=== PATIENT | male | born 1945 | race Caucasian/White ===

== ENCOUNTER 2020-04-30 16:16 | Inpatient (IN) | payer MEDICARE, BC ==
[~2020-04-30] VITALS: Ht 170.2 cm; Wt 61.2 kg
[2020-04-30] MEDS ORDERED: QUET300T2 PO (16:36)
[2020-04-30] MEDS ORDERED: ASPI81TA31 PO (16:36)
[2020-04-30] MEDS ORDERED: CALCIUM (16:36)
[2020-04-30] MEDS ORDERED: PROTONIX (16:36)
[2020-04-30] MEDS ORDERED: ACET-2154 PO (16:36)
[2020-04-30] MEDS ORDERED: MULT-594 PO (16:36)
[2020-04-30] MEDS ORDERED: FOLIC ACID (16:36)
[2020-04-30] MEDS ORDERED: FISH OIL (16:36)
[2020-04-30] MEDS ORDERED: VITAMIN D3 (16:36)
[2020-04-30] MEDS ORDERED: DETROL LA (16:36)
[2020-04-30] MEDS ORDERED: IRON (16:36)
[2020-04-30] MEDS ORDERED: LIPITOR (16:36)
--- NOTE | 2020-04-30 17:06 | NUR ---
PT IS IN ROOM #1B. DR JOHNSON EVALUATED THE PT.
[2020-04-30] MEDS ORDERED: MORPHINE SULFATE 2 MG/1 ML DISP.SYRIN IV ONE (17:15)
[2020-04-30] MEDS ORDERED: ONDANSETRON 4 MG/2 ML VIAL IV ONE (17:15)
[2020-04-30] MEDS ORDERED: IV NORMAL SALINE 1000 ML BAG IV ONE ×3 (17:15→18:00)
--- NOTE | 2020-04-30 17:20 | NUR ---
Pt unable recall doses/freq for home medications at this time.
[2020-04-30] MEDS ORDERED: ONDANSETRON 4 MG/2 ML VIAL ONE (17:27)
[2020-04-30] MEDS ORDERED: MORPHINE SULFATE 4 MG/1 ML DISP.SYRIN ONE (17:27)
[2020-04-30] MEDS ORDERED: LOSARTAN (17:28)
[2020-04-30] MEDS ORDERED: TAMSULOSIN (17:28)
[2020-04-30] MEDS ORDERED: SIMVASTATIN (17:28)
[2020-04-30] MEDS ORDERED: SERTRALINE (17:28)
[2020-04-30] MEDS ORDERED: FINASTERIDE (17:28)
[2020-04-30 17:32] LABS: BASOPHILS % (AUTO) 0.2 % (0.0-2.0); HEMATOCRIT 39.3 % (36.7-47.1); HEMOGLOBIN 12.9 g/dL (12.5-16.3); LYMPHOCYTES # (AUTO) 0.4 K/uL (20.0-40.0); LYMPHOCYTES % (AUTO) 4.5 % (20.5-51.5); MEAN CORPUSCULAR HEMOGLOBIN 28.6 uug (23.8-33.4); MEAN CORPUSCULAR HGB CONC 33 g/dL (32.5-36.3); MEAN CORPUSCULAR VOLUME 87.2 fL (73.0-96.2); MONOCYTES # (AUTO) 0.2 K/uL (2.0-10.0); MONOCYTES % (AUTO) 2.1 % (0.0-11.0); NEUTROPHILS # (AUTO) 8.4 K/uL (1.8-8.9); NEUTROPHILS % (AUTO) 93.2 % (38.5-71.5); PLATELET COUNT (AUTO) 361 K/uL (152-348); RED BLOOD CELL COUNT(AUTO) 4.51 MIL/uL (4.06-5.63)
[2020-04-30 17:45] LABS: BILIRUBIN,DIRECT 0.2 mg/dL (0.0-0.2); BILIRUBIN,TOTAL 0.3 mg/dL (0.2-1.0); CREATININE 1.1 mg/dL (0.6-1.3); POTASSIUM 4.2 mmol/L (3.5-5.1); TOTAL PROTEIN, SERUM 5.7 g/dL (6.4-8.2)
[2020-04-30] MEDS ORDERED: CEFTRIAXONE 1 G in IV DEXTROSE 5% 50 ML IV ONE (18:00)
[2020-04-30] MEDS ORDERED: CEFTRIAXONE /D5W 50ML IVPB **ER PYXIS IV ONE (18:03)
[2020-04-30] MEDS ORDERED: PIPERACILLIN SODIUM/TAZOBACTAM 3.375 G in IV DEXTROSE 5% 50 ML IV ONE (18:45)
[2020-04-30] MEDS ORDERED: PIPERACILLIN/TAZOBACTAM/D5W 50 ML IV ONE (18:50)
--- NOTE | 2020-04-30 18:56 | NUR ---
DR JOHNSON TALKED TO ADMITTING DR HERNANDEZ AND SURGION , DR GOODSON. PT IS GOING TO GO FOR SURGERY ACCORDING TO DR GOODSON AT 1930 - 1999 [facility]. REPORT GIVEN TO REPAIRER [employer] RN DEJA. PT IS RESTING IN BED. NO S/S OF ACUTE DISTRESS AT THIS TIME.
--- NOTE | 2020-04-30 19:17 | NUR ---
Surgeon ricarda noted talking to patient at this time
--- NOTE | 2020-04-30 19:54 | NUR ---
patient placed in gown at this time, report given to OR nurse, awaiting covid results
[2020-04-30] MEDS ORDERED: MORPHINE SULFATE 2 MG/1 ML DISP.SYRIN IV PRN (20:00)
[2020-04-30] MEDS ORDERED: ACETAMINOPHEN 325 MG TABLET PO PRN (20:00)
[2020-04-30] MEDS ORDERED: IV D5 1/2 NS 1000 ML 1,000 ML IV PRN (20:00)
[2020-04-30] MEDS ORDERED: ONDANSETRON 4 MG/2 ML VIAL IV PRN (20:00)
[2020-04-30] MEDS ORDERED: Z GUARD REMEDY PASTE 57 GM TUBE TOP PRN (20:00)
[2020-04-30] MEDS ORDERED: HYDROCODONE/APAP 5-325MG TABLET PO PRN (20:00)
[2020-04-30] MEDS ORDERED: MAGNESIUM HYDROXIDE 30 ML LIQUID UDC PO PRN (20:00)
[2020-04-30] MEDS ORDERED: ROCURONIUM BROMIDE 50 MG/5 ML VIAL ONE ×2 (20:01→23:09)
[2020-04-30] MEDS ORDERED: MIDAZOLAM HCL 2 MG/2 ML VIAL ONE (20:01)
[2020-04-30] MEDS ORDERED: FENTANYL CITRATE 100 MCG/2 ML AMPUL ONE (20:01)
[2020-04-30] MEDS ORDERED: SUCCINYLCHOLINE CHLORIDE 200 MG/10 ML VIAL ONE (20:02)
--- NOTE | 2020-04-30 20:05 | NUR ---
patient is covid negative, OR Nurse (Jacquie) informed of resluts
[2020-04-30] MEDS ORDERED: EPINEPHRINE 1 MG/1 ML AMP ONE (20:19)
[2020-04-30] MEDS ORDERED: BUPIVACAINE 0.25% 30 ML VIAL ONE (20:20)
[2020-04-30] MEDS ORDERED: BACITRACIN/POLYMYXIN B OINT 15 GM TUBE ONE (20:20)
[2020-04-30] MEDS ORDERED: LIDOCAINE HCL 1% 20 ML VIAL ONE (20:20)
--- NOTE | 2020-04-30 20:24 | NUR ---
patient taken to surgery at this time
[2020-04-30] MEDS ORDERED: SEVOFLURANE 250 ML BOTTLE ONE (22:36)
[2020-04-30 23:11] LABS: HEMATOCRIT 33.6 % (36.7-47.1); HEMOGLOBIN 10.5 g/dL (12.5-16.3)
[2020-04-30] MEDS ORDERED: ALBUMIN HUMAN 5% 250 ML ONE ×2 (23:19→23:36)
[2020-04-30] MEDS ORDERED: ALBUMIN HUMAN 25% 0 ML ONE (23:23)
[2020-04-30 23:26] LABS: BAND % (MANUAL) 9 % (0-10); EOSINOPHILS % (MANUAL) 1 % (0-8); LYMPHOCYTES % (MANUAL) 4 % (20-40); MONOCYTES % (MANUAL) 2 % (2-10); NEUTROPHILS % (MANUAL) 84 % (42-75)
[2020-05-01] VITALS (77 sets, daily range): BP systolic 67–130; BP diastolic 46–103
[2020-05-01] MEDS ORDERED: PHENYLEPHRINE IV 100 MG in IV NORMAL SALINE 240 ML IV PRN ×2
[2020-05-01] MEDS ORDERED: PIPERACILLIN/TAZOBACTAM/D5W 100 ML IV ONE (00:31)
[2020-05-01] MEDS ORDERED: PHENYLEPHRINE 10 MG/1 ML VIAL ONE (00:34)
[2020-05-01] MEDS: PIPERACILLIN SODIUM/TAZOBACTAM 3.375 G in IV DEXTROSE 5% 50 ML IV SCH ×2 (00:39→06:16)
--- NOTE | 2020-05-01 00:40 | NUR ---
PT RECEIVED ORALLY INTUBATED IN THE OR, PT TRANSPORTED VIA AMBU-BAG TO CCU-2 WITHOUT INCIDENT. PT PLACED ON A ANDERSON VENT, SETTINGS OF A/C 12, VT 500, PEEP+5, AND 100% FIO2 GIVEN BY OR . 7.5 ETT SECURED WITH ANCHOR-FAST APPROX. 24 CM AT THE LIP. SPUTUM SPECIMEN COLLECTED. PT IS TOLERATING VENT WELL, NO RESP. DISTRESS NOTED. BVM AT BEDSIDE. VENT PLUGGED INTO RED OUTLET. WILL CONTINUE TO MONITOR.
--- NOTE | 2020-05-01 00:55 | NUR ---
RECEIVED PT. FROM PACU VIA BED INTUBATED CONNECTED TO VENT W/ SETTINGS OF AC-12, TV-500, FIO2-100%, PEEP-+5. PT RESPONDING TO NOXIOUS STIMULI. NGT ON R NARE TO LOW INTERMITENT SUCTION W/ BILE DRAINAGE. IVF ON RFA NO SIGNS OF INFILTRATION. ABD. DRSG INTACT & DRY. ABD. HAS NO BOWEL SOUND. REPOSITIONED W/ HOB ELEVATED.
[2020-05-01 01:03] LABS: ABG BASE EXCESS -9.9 mmol/L; ABG HCO3 16.4 mmol/L; ABG PCO2 38.1 mmHg (35.0-45.0); ABG PH 7.253 (7.350-7.450); ABG SITE RIGHT RADIAL; COHb 1.1 % (0.5-1.5); MetHb 0.2 % (0.0-1.5); O2Hb 98.5 % (94.0-97.0); VENT MODE VENT - A/C; VT, ABG 500 mL
[2020-05-01] MEDS ORDERED: HYDROMORPHONE 1 MG/1 ML DISP.SYRIN IV PRN (02:15)
[2020-05-01] MEDS: IV LACTATED RINGERS SOLUTION 1,000 ML IV PRN ×3 (03:30→21:01)
--- NOTE | 2020-05-01 04:00 | NUR ---
PT REMAINS SEDATED W/O DIPRIVAN. V/S STABLE. REPOSITIONED W/ HOB ELEVATED.
[2020-05-01 05:19] LABS: BASOPHILS % (AUTO) 0.2 % (0.0-2.0); HEMATOCRIT 24.9 % (36.7-47.1); HEMOGLOBIN 8.2 g/dL (12.5-16.3); LYMPHOCYTES # (AUTO) 0.3 K/uL (20.0-40.0); LYMPHOCYTES % (AUTO) 3.1 % (20.5-51.5); MEAN CORPUSCULAR HGB CONC 33 g/dL (32.5-36.3); MEAN CORPUSCULAR VOLUME 88.5 fL (73.0-96.2); MONOCYTES # (AUTO) 0.4 K/uL (2.0-10.0); NEUTROPHILS # (AUTO) 10.2 K/uL (1.8-8.9); NEUTROPHILS % (AUTO) 92.7 % (38.5-71.5); PLATELET COUNT (AUTO) 372 K/uL (152-348); RED BLOOD CELL COUNT(AUTO) 2.82 MIL/uL (4.06-5.63)
[2020-05-01] MEDS ORDERED: PHENYLEPHRINE 10 MG/1 ML VIAL MC ONE (05:19)
[2020-05-01] MEDS ORDERED: EPHEDRINE SULFATE 50 MG/ML AMPUL MC ONE (05:19)
[2020-05-01] MEDS ORDERED: PROPOFOL 200 MG/20 ML BOTTLE IV ONE (05:19)
[2020-05-01] MEDS ORDERED: DEXAMETHASONE SOD PHOSPHATE 4 MG INJ IV ONE (05:19)
[2020-05-01] MEDS ORDERED: LIDOCAINE-MPF 2% 5 ML VIAL MC ONE (05:19)
[2020-05-01] MEDS ORDERED: ONDANSETRON 4 MG/2 ML VIAL IV ONE (05:19)
[2020-05-01 05:32] LABS: CARBON DIOXIDE 18 mmol/L (21-32); CHLORIDE 112 mmol/L (98-107); CREATININE 1.4 mg/dL (0.6-1.3); GLUCOSE 212 mg/dL (74-106); MAGNESIUM 1.9 mg/dL (1.8-2.4); PHOSPHOROUS 4.2 mg/dL (2.5-4.9); POTASSIUM 5.1 mmol/L (3.5-5.1); UREA NITROGEN, BLOOD 27 mg/dL (7-18)
--- NOTE | 2020-05-01 05:40 | NUR ---
PT IS AWAKE, FOLLOWS TO COMMAND. NODDED HIS HEAD WHEN ASKED IF HE IS IN PAIN, MEDICATED W/ DILAUDID 0.5MG IVP GIVEN.
[2020-05-01] MEDS: PROPOFOL 100 ML IV PRN (05:45)
--- NOTE | 2020-05-01 05:45 | NUR ---
PT REMAINS AGITATED TRYING TO PULL OUT TUBE. STARTED ON DIPRIVAN DRIP @ 5MCQ/KG /MIN.
[2020-05-01] MEDS: HYDROMORPHONE 1 MG/1 ML DISP.SYRIN IV PRN ×4 (05:49→22:16)
[2020-05-01] MEDS ORDERED: FINA5TAB11 PO (06:05)
[2020-05-01] MEDS ORDERED: SERT50TA PO (06:07)
[2020-05-01] MEDS ORDERED: LOSA100T3 PO (06:07)
[2020-05-01] MEDS ORDERED: TAMS-3 PO (06:07)
--- NOTE | 2020-05-01 06:22 | NUR ---
REMAINS AGITATED INCREASED DIPRIVAN DRIP TO 10MCQ/KG/MIN. REPOSITIONED ON HIS OPPOSITE W/ HOB ELEVATED.
[2020-05-01] MEDS: PHENYLEPHRINE IV PRN ×2 (07:30→19:38)
[2020-05-01] MEDS: NORMAL SALINE IV PRN ×2 (07:30→19:38)
--- NOTE | 2020-05-01 07:30 | NUR ---
Report received.Pt appears sedated,responsive to tactile stimuli.Diprivan gtt is off.No s/s of pain,discomfort.Sinus tachycardia on monitor.BP remains in low 80s.Neosynephrine gtt started for BP support.Pt remains intubated.Called ,left message.Will continue to monitor.
[2020-05-01 07:52] LABS: ABG BASE EXCESS -6.6 mmol/L; ABG HCO3 18.9 mmol/L; ABG PCO2 37.5 mmHg (35.0-45.0); ABG PO2 200.6 mmHg (75.0-100.0); ABG SITE RIGHT RADIAL; ABG TOTAL HEMOGLOBIN 7.7 G/dL (13.5-18.0); COHb 1.1 % (0.5-1.5); O2Hb 98.2 % (94.0-97.0); VENT MODE VENT - A/C12; VT, ABG 500 mL
--- NOTE | 2020-05-01 09:22 | NUR ---
Spoke with ,updated on pt condition.New orders received.
[2020-05-01] MEDS: PANTOPRAZOLE SODIUM 40 MG VIAL IV SCH (09:29)
[2020-05-01] MEDS ORDERED: IV NS 1000 ML 1,000 ML IV ONE ×2 (09:30→15:00)
--- NOTE | 2020-05-01 10:04 | NUR ---
PT is responsive now.Denies pain,discomfort.Able to respond to question appropriately by nodding his head.Pt gave consent for Picc line insertion.
--- NOTE | 2020-05-01 11:00 | NUR ---
Spoke with regarding pt condition.New orders for NGT care received.Will continue to monitor pt.
--- NOTE | 2020-05-01 11:50 | NUR ---
Seen,examined by with new orders.
[2020-05-01] MEDS ORDERED: PIPERACILLIN SODIUM/TAZOBACTAM 3.375 G in IV DEXTROSE 5% 50 ML IV ONE (12:00)
--- NOTE | 2020-05-01 14:00 | NUR ---
Seen,examined by with new orders.
[2020-05-01] MEDS: MAGNESIUM SULFATE/D5W 100 ML IV SCH ×2 (15:58→16:43)
[2020-05-01] MEDS ORDERED: PIPERACILLIN SODIUM/TAZOBACTAM 3.375 G in IV DEXTROSE 5% 50 ML IV SCH (18:00)
--- NOTE | 2020-05-01 18:51 | NUR ---
Pt remains alert,follows commands.Pt is off sedation throughout the shift.Denies pain,discomfort.Remains on Neosynephrine gtt to support BP.Will continue to monitor.
--- NOTE | 2020-05-01 19:00 | NUR ---
received patient awake , able to communicate with simple nod , on LR 150 ML , NEOSYNEPHRINE AT 1.2 MCG , PICC LINE RIGHT FEMORAL /THIGH INTACT AND RUNNING , ABDOMINAL DRESSING INTACT , NO BLEEDING NOTED , NO FEVER , VENT SETTINGS OF AC 12 , TV 500 FIO2 AT35 % , NGT PLACEMENT ATTCHED TO LOW INTERMITTENT SUCTION , CHECKED AND FLUSHED WITH 30 ML OF NS , DRAINING WITH BLACK COLOR , MD AWARE , BUCHANAN INTACT
--- NOTE | 2020-05-01 20:59 | NUR ---
DR AGUILAR IS HERE TO SEE PATIENT , UPDATES GIVEN ON PATIENT , RECENT LAB WORKS , OUT PUT ON NGT AND BUCHANAN , MEDICATIONS RECEIVING , VS ESPECIALLY HR IS TACHY AND HGB., CALLED BROTHER , EXPLAINED , THE PROCEDURE , OUTCOME AND PLANS
[2020-05-01] MEDS: PIPERACILLIN SODIUM/TAZOBACTAM 3.37 G in IV DEXTROSE 5% 100 ML IV SCH (21:22)
--- NOTE | 2020-05-01 23:23 | NUR ---
dr ratliff called regarding HR consistently > 120 , history of the patient given and medications receiving , no orders received at this time , just observe patient
--- NOTE | 2020-05-01 23:25 | NUR ---
patient ema not develop sepsis during hospitaliztion and will respond to antibiotics , ab king being monitored daily Addendum: 05/01/20 at 2325 by OMAR CASTELLANOS RN Amended: Links added. Addendum: 05/01/20 at 232 by OMAR CASTELLANOS RN Amended: Links added. Addendum: 05/01/20 at 2327 by OMAR CASTELLANOS RN Amended: Links added. Addendum: 05/01/20 at 2328 by OMAR CASTELLANOS RN Amended: Links added.
--- NOTE | 2020-05-01 23:26 | NUR ---
incision site being mobitored , dressing intact , dr chowdary is here to see patient Addendum: 05/01/20 at 2326 by OMAR CASTELLANOS RN Amended: Kathy stein. Addendum: 05/01/20 at 2326 by OMAR CASTELLANOS RN Amended: Kathy stein. Addendum: 05/01/20 at 8 by OMAR CASTELLANOS RN Amended: Links added.
--- NOTE | 2020-05-01 23:27 | NUR ---
patient is awake , and will tolerate current vent settings Addendum: 05/01/20 at 2327 by OMAR CASTELLANOS RN Amended: Kathy added. Addendum: 05/01/20 at 2328 by OMAR CASTELLANOS RN Amended: Kathy stein.
--- NOTE | 2020-05-01 23:28 | NUR ---
family is notified and dr chowdary explained the procedure and plan for the patient to brother buzz Addendum: 05/01/20 at 4168 by OMAR CASTELLANOS RN Amended: Links added.
--- NOTE | 2020-05-01 23:29 | NUR ---
pain medication is being offered and assess Addendum: 05/01/20 at 5798 by OMAR CASTELLANOS RN Amended: Links added.
[2020-05-02] VITALS (93 sets, daily range): BP systolic 38–170; BP diastolic 16–143
[2020-05-02] MEDS: ACETAMINOPHEN 650 MG SUPP.RECT RC PRN ×2 (03:40→12:02)
--- NOTE | 2020-05-02 04:10 | NUR ---
dr chowdary is notified of change of condition , medication given doctor miller went to see patient , pressors running , and patient's loc , vent settings and awating lab results drawn for the morning
--- NOTE | 2020-05-02 04:15 | NUR ---
dr ron rehman called notified of patient's condition , medications running and given , received order of levophed iv
[2020-05-02] MEDS ORDERED: NOREPINEPHRINE BITARTRATE 8 MG in IV NORMAL SALINE 242 ML IV PRN ×2 (04:30→07:15)
--- NOTE | 2020-05-02 04:30 | NUR ---
buzz brother called and left a message about change of condition , waiting for call back
[2020-05-02] MEDS ORDERED: NOREPINEPHRINE BITARTRATE 4 MG/4 ML VIAL IV ONE (04:43)
[2020-05-02] MEDS: NORMAL SALINE IV PRN ×2 (04:45→09:05)
[2020-05-02] MEDS: PHENYLEPHRINE IV PRN ×2 (04:45→09:05)
[2020-05-02] MEDS ORDERED: ATROPINE SULFATE 1 MG/10 ML DISP.SYRIN IV ONE (04:45)
[2020-05-02 04:57] LABS: BASOPHILS % (AUTO) 0.1 % (0.0-2.0); LYMPHOCYTES # (AUTO) 0.7 K/uL (20.0-40.0); LYMPHOCYTES % (AUTO) 5.8 % (20.5-51.5); MEAN CORPUSCULAR HEMOGLOBIN 29.1 uug (23.8-33.4); MEAN CORPUSCULAR HGB CONC 31 g/dL (32.5-36.3); MEAN CORPUSCULAR VOLUME 93.3 fL (73.0-96.2); MONOCYTES # (AUTO) 0.5 K/uL (2.0-10.0); MONOCYTES % (AUTO) 4.7 % (0.0-11.0); NEUTROPHILS # (AUTO) 10.3 K/uL (1.8-8.9); NEUTROPHILS % (AUTO) 89.4 % (38.5-71.5); PLATELET COUNT (AUTO) 290 K/uL (152-348); WHITE BLOOD COUNT (AUTO) 11.6 K/uL (3.6-10.2)
--- NOTE | 2020-05-02 05:00 | NUR ---
scarlett called and left a message to samantha regarding blood bank issuing of prbc for the patient
[2020-05-02 05:01] LABS: RED BLOOD CELL COUNT(AUTO) 1.16 MIL/uL (4.06-5.63)
[2020-05-02 05:02] LABS: HEMATOCRIT 10.8 % (36.7-47.1); HEMOGLOBIN 3.4 g/dL (12.5-16.3)
[2020-05-02 05:03] LABS: CHLORIDE 114 mmol/L (98-107); CREATININE 2.9 mg/dL (0.6-1.3); GLUCOSE 138 mg/dL (74-106); MAGNESIUM 2.7 mg/dL (1.8-2.4); POTASSIUM 5.3 mmol/L (3.5-5.1); UREA NITROGEN, BLOOD 39 mg/dL (7-18)
[2020-05-02 05:04] LABS: BILIRUBIN,DIRECT 0.1 mg/dL (0.0-0.2); BILIRUBIN,TOTAL 0.2 mg/dL (0.2-1.0); TOTAL PROTEIN, SERUM 3.5 g/dL (6.4-8.2)
--- NOTE | 2020-05-02 05:10 | NUR ---
dr chowdary is called for recent blood work results , hgb and lactic acid results and [facility] doctor ordered 4 units of prbc , no order received from dr chowdary
[2020-05-02 05:15] LABS: CARBON DIOXIDE 10 mmol/L (21-32); PHOSPHOROUS 8.5 mg/dL (2.5-4.9)
--- NOTE | 2020-05-02 05:15 | NUR ---
scarlett talked to samantha supervisor inventory merchandising in the lab , and called em cno , regarding blood bank issue about the patient , dr miller here made aware of the issue
--- NOTE | 2020-05-02 05:20 | NUR ---
dr velasquez is called to notify of recent lab work , hgb and lactic acid , abg pending , cxr pending , dr chowdary is called and aware of condition , no order received at this time
--- NOTE | 2020-05-02 05:24 | NUR ---
scarlett , dike supervisor , is aware , of blood bank unable to prepare the blood at this time ,
--- NOTE | 2020-05-02 05:26 | NUR ---
patient is only responsive to deep pain , no spontaneous eye opening , , current blood pressure is 88 / 57 , hr 153 , rr 43 93 % 100 fio2 , ngt is still on low intermittent suction , , with coffee ground drainage , levophed is at 1 mcg , neosynephrine , 3 mcg , lr at 150 ml ,
[2020-05-02 05:28] LABS: ABG BASE EXCESS -20.8 mmol/L; ABG HCO3 7.2 mmol/L; ABG PCO2 26.1 mmHg (35.0-45.0); ABG PH 7.061 (7.350-7.450); ABG SITE RIGHT FEMORAL; ABG TOTAL HEMOGLOBIN 3.6 G/dL (13.5-18.0); COHb 1.5 % (0.5-1.5); MetHb 0.2 % (0.0-1.5); O2Hb 98.1 % (94.0-97.0); VENT MODE VENT - A/C; VT, ABG 500 mL
--- NOTE | 2020-05-02 05:30 | NUR ---
scarlett and supervisor wheel shop are here regarding prbc blood bank issue
--- NOTE | 2020-05-02 05:42 | NUR ---
dr king notified of abg results change of condition , medication running and given , dr chowdary and ron aware of what's happening to the patient
[2020-05-02] MEDS: IV LACTATED RINGERS SOLUTION 1,000 ML IV PRN ×2 (05:53→18:08)
--- NOTE | 2020-05-02 06:15 | NUR ---
dr chowdary called and updates given on the patient , fisrt blood running , and dr king request to se the patient again after lab hgb of 3.4
[2020-05-02] MEDS: PIPERACILLIN SODIUM/TAZOBACTAM 3.37 G in IV DEXTROSE 5% 100 ML IV SCH ×3 (06:39→21:16)
--- NOTE | 2020-05-02 06:50 | NUR ---
dr costa is here to see patient ;, updates given on patient's condition , received order of 2 l of lr bolus
--- NOTE | 2020-05-02 07:00 | NUR ---
patient is only responsive to deep pain , levophed at 1mcg , neosynephrine at 3 mcg , lr 150, another lr going bolus 1l , vent setting ac 12 tv 500 fio2 100 % , low intermittent suction ngt 200 ml output [place] md aware dr velasquez , dr miller , dr monzon , dr bacon aware of patient's current status , picc line intact right femoral
--- NOTE | 2020-05-02 07:20 | NUR ---
Received report from Madelyn THORPE, received patient awake alert x1, patient ST non stable in the 140s unable to get a BP reading and patient maxed out on pressors, transfusion in process 1 unit transfused. Patient on Ventilator support, abnormal ABG this morning printed circuit layout taper made aware. Patient very unstable.
[2020-05-02] MEDS ORDERED: IV LACTATED RINGERS SOLUTION 1,000 ML IV ONE ×2 (07:30)
--- NOTE | 2020-05-02 07:30 | NUR ---
PT RECEIVED ORALLY INTUBATED WITH A SIZE 7.5 ETT SECURED WITH ANCHOR-FAST APPROX. 24CM AT THE LIP. PT IS ON A ANDERSON VENT ON SETTINGS OF A/C 12, VT 500, 0 PEEP, AND 100% FIO2. VENT PARAMETERS AND ALARMS CHECKED, ALARMS ARE AUDIBLE. PT IS LAYING IN TRENDELENBURG POSITION. PT IS TACHYPNEIC AND TACHYCARDIC, RN IS AT BEDSIDE. BVM AT BEDSIDE. VENT PLUGGED INTO RED OUTLET. WILL CONTINUE TO MONITOR.
--- NOTE | 2020-05-02 07:47 | NUR ---
Pulmonary services Dr. Carreon in the unit, full report given to Dr. Carreon. See order history for new orders. Dr. Carreon at bedside assessing patient.
--- NOTE | 2020-05-02 07:47 | NUR ---
Dr. Avilez in the unit, full report given to Dr. Avilez. Dr Avilez at bedside assessing patient. Dr. Avilez called patients brother no answer, he left a message with patients status.
[2020-05-02] MEDS ORDERED: SODIUM BICARBONATE 8.4% 50 MEQ/50 ML DISP.SYRIN IV ONE (08:00)
[2020-05-02] MEDS: PANTOPRAZOLE SODIUM 40 MG VIAL IV SCH (08:18)
--- NOTE | 2020-05-02 08:30 | NUR ---
Critical of lactic acid 12.[address] Morales, no new orders received.
[2020-05-02] MEDS: NOREPINEPHRINE BITARTRATE 32 MG in IV NORMAL SALINE 218 ML IV PRN ×2 (09:00→17:43)
--- NOTE | 2020-05-02 10:00 | NUR ---
Cardiology services Dr. Medina in the unit, full report given. See order history for new orders. Dr. Medina at bedside assessing patient.
[2020-05-02 10:26] LABS: HEMATOCRIT 33.2 % (36.7-47.1)
[2020-05-02 12:06] LABS: ABG BASE EXCESS -15.2 mmol/L; ABG HCO3 9.1 mmol/L; ABG PCO2 19.3 mmHg (35.0-45.0); ABG PH 7.293 (7.350-7.450); ABG PO2 351.9 mmHg (75.0-100.0); ABG SITE RIGHT RADIAL; ABG TOTAL HEMOGLOBIN 12.3 G/dL (13.5-18.0); COHb 0.5 % (0.5-1.5); MetHb 0.1 % (0.0-1.5); O2Hb 99.2 % (94.0-97.0); VENT MODE VENT - A/C; VT, ABG 600 mL
[2020-05-02] MEDS: PHENYLEPHRINE IV 100 MG in IV NORMAL SALINE 240 ML IV PRN ×2 (13:04→21:17)
[2020-05-02] MEDS: PROPOFOL 100 ML IV PRN (13:49)
[2020-05-02 14:53] LABS: BAND % (MANUAL) 30 % (0-10); LYMPHOCYTES % (MANUAL) 3 % (20-40); METAMYELOCYTES % 1 % (0-1); MONOCYTES % (MANUAL) 4 % (2-10); NEUTROPHILS % (MANUAL) 62 % (42-75)
--- NOTE | 2020-05-02 15:30 | NUR ---
Dr. Medina called and notified of patient sudden drop in BP, awaiting for call back.
[2020-05-02] MEDS ORDERED: PANTOPRAZOLE SODIUM 40 MG VIAL IV SCH (17:00)
[2020-05-02] MEDS ORDERED: MIDAZOLAM HCL 50 MG in IV NORMAL SALINE 40 ML IV PRN (17:00)
--- NOTE | 2020-05-02 19:00 | NUR ---
received patient from [facility] , patient in on ventilator setting ac 20 tv 600 fio2of 60 % , non reactive pupil dilated, weak pulses , hr 144 , blood pressure 125 / 55 , rr 27 , 774% oxygen saturation versed iv 2 mg , neosynephrine 3 mcg , levophed 1 mcg , lr 150 ml . picc line intact , hands are cool , ngt is on low intermittent suction , draining coffee ground
--- NOTE | 2020-05-02 19:00 | NUR ---
surgical insicion site dressing intact , no bleeding noted , abdomen soft
--- NOTE | 2020-05-02 19:48 | NUR ---
dr humphries called for consult for gi bleed , and left a message
--- NOTE | 2020-05-02 20:05 | NUR ---
PT RECEIVED ON ANDERSON VENT WITH SETTINGS OF A/C 12, VT 500, 0 PEEP, AND 60% FIO2. 7.5 ETT SECURED WITH ANCHOR-FAST APPROX. 24CM AT THE LIP. ALARMS ON AND AUDIBLE. PT IS LAYING IN TRENDELENBURG POSITION. PT IS TACHYPNEIC AND TACHYCARDIC, RN IS AT BEDSIDE. BELLE @ BEDSIDE. WILL CONTINUE TO MONITOR. Addendum: 05/03/20 at 0400 by ALDO ENAMORADO RT A/C 20, VT 600, 0 PEEP, AND 60% FIO2
--- NOTE | 2020-05-02 20:20 | NUR ---
ori edwards was called regarding consistent low blood pressure and hr of 140 "s waiting for call back
--- NOTE | 2020-05-02 20:35 | NUR ---
dr velasquez called back ordered vasopressin , and dopamine
[2020-05-02] MEDS ORDERED: VASOPRESSIN 40 UNIT in IV NORMAL SALINE 40 ML IV PRN (20:45)
[2020-05-02] MEDS ORDERED: KETOROLAC TROMETHAMINE 30 MG INJ ONE (21:21)
[2020-05-02] MEDS ORDERED: VASOPRESSIN 20 UNIT/ML VIAL ONE (21:22)
[2020-05-02] MEDS: DOPamine IV DRIP 400 MG/250ML 250 ML IV PRN (22:00)
--- NOTE | 2020-05-02 23:00 | NUR ---
dr chowdary called and gave an update on the patient's status , recent lab works and mediations being given
[2020-05-02 23:48] LABS: HEMATOCRIT 35.1 % (36.7-47.1); HEMOGLOBIN 11.5 g/dL (12.5-16.3)
[2020-05-03] VITALS (7 sets, daily range): BP systolic 51–140; BP diastolic 21–124
[2020-05-03] MEDS: IV LACTATED RINGERS SOLUTION 1,000 ML IV PRN (00:33)
[2020-05-03] MEDS: DOPamine IV DRIP 400 MG/250ML 250 ML IV PRN ×2 (00:35→03:54)
[2020-05-03] MEDS: NOREPINEPHRINE BITARTRATE 32 MG in IV NORMAL SALINE 218 ML IV PRN (01:29)
--- NOTE | 2020-05-03 02:16 | NUR ---
patient will able to tolerate current vent settings , and will report to md any change of condition or abnormality on cxr and abg's Addendum: 05/03/20 at 0216 by OMAR CASTELLANOS RN Amended: Links added. Addendum: 05/03/20 at 0218 by OMAR CASTELLANOS RN Amended: Links emil.
--- NOTE | 2020-05-03 02:18 | NUR ---
family will be notified of updates , and changes in condition and will understand plans , prognosis Addendum: 05/03/20 at 0218 by OMAR CASTELLANOS RN Amended: Links added.
--- NOTE | 2020-05-03 02:19 | NUR ---
intake and out put being monitored , and no signs of bleeding on incision site will be noted Addendum: 05/03/20 at 0219 by OMAR CASTELLANOS RN Amended: Kathy added. Addendum: 05/03/20 at 220 sabina CASTELLANOS RN Amended: Kathy added. Addendum: 05/03/20 at 220 sabina CASTELLANOS RN Amended: Links added.
--- NOTE | 2020-05-03 02:21 | NUR ---
patient is on versed and pain medication is available and will be given according to mahesh;s needs Addendum: 05/03/20 at 1 sabina CASTELLANOS RN Amended: Links added. Addendum: 05/03/20 at 220 sabina CASTELLANOS RN Amended: Links added.
--- NOTE | 2020-05-03 04:00 | NUR ---
vent setting ac 20 tv 600 fio2 100 % , vasopressin 0.04 units , levophed 1 mcg , neosynephrine 3 mcg , dopamine 30 mcg , lr 150 ml versed 2 mg , picc line intact , st 127 , no bloo d pressure reading , no pulse oxygenation reading , , ngt low intermittent suction , draining coffee ground , cool to touch , eyes non reactive , surgical incision site intact , dressing no bleeding
--- NOTE | 2020-05-03 04:00 | NUR ---
late addendum , versed was held , consistent low oxygen saturation and , unable to read blood pressure , still tachycardic rate of 131 with cool to touch , eyes dilated ,
[2020-05-03] MEDS ORDERED: PHENYLEPHRINE 10 MG/1 ML VIAL ONE ×2 (04:14→04:20)
[2020-05-03] MEDS ORDERED: IV NORMAL SALINE 500 ML IV SCH (04:30)
--- NOTE | 2020-05-03 04:32 | NUR ---
Code ar was called at 0432, RN Madelyn, RN Stefanie in room. No pulse found. Began compressions. ER Doctor and nurse, RT Dustin, RT Cam arrived. Ambubag set and 100% FiO2 began bagging. ER Doctor called time of @ 0520.
[2020-05-03] MEDS ORDERED: DEXTROSE 50% 50 ML DISP.SYRIN ONE (04:50)
[2020-05-03] MEDS ORDERED: EPINEPHRINE 1:10,000 1 MG/10 ML DISP.SYRIN ONE ×3 (04:53→05:14)
--- NOTE | 2020-05-03 05:00 | NUR ---
take up supervisor Linnea at bedside and made aware of emergency prbc order by ER , and blood bank issue of releasing it , ER ,made aware
[2020-05-03] MEDS ORDERED: EPINEPHRINE 1 MG/1 ML AMP ONE (05:11)
--- NOTE | 2020-05-03 05:14 | NUR ---
NO AUDIBLE HEART TONES NOTED FOR 1MIN. NO PALPABLE PULSES NOTED FOR 1 MIN. NO CORNEAL REFLEXES NOTED. PRONOUNCED BY DR Paula HAWTHORNE ER PHYSICIAN.
[2020-05-03] MEDS ORDERED: SODIUM BICARBONATE 8.4% 50 MEQ/50 ML DISP.SYRIN IV ONE (05:19)
[2020-05-03] MEDS ORDERED: ATROPINE SULFATE 1 MG/10 ML DISP.SYRIN IV ONE (05:19)
[2020-05-03] MEDS ORDERED: EPINEPHRINE 1:10,000 1 MG/10 ML DISP.SYRIN IV ONE (05:19)
[2020-05-03] MEDS ORDERED: DEXTROSE 50% 50 ML DISP.SYRIN IV ONE (05:19)
--- NOTE | 2020-05-03 05:20 | NUR ---
brother Ifeanyi called and notified of , informed of protocol and nursing fitting supervisor number given , verbalizes understanding
--- NOTE | 2020-05-03 05:25 | NUR ---
dr chowdary called and left a message ,
--- NOTE | 2020-05-03 05:30 | NUR ---
dr velasquez was called and left a message with the exchange
--- NOTE | 2020-05-03 05:45 | NUR ---
lambert and ngt emoved , surgical dressing site intact , extubated by RT after pronouncement
== END 2020-05-03 05:20 | disposition expired | DRG 853 ==
LOC: ER 16:19 → CCU 21:34
PROVIDERS: ADMIT Student in an Organized Health Care Education/Training Program; ATTEND Student in an Organized Health Care Education/Training Program
PROC: 0DB80ZZ Excision of Small Intestine, Open Approach (ICD-10-PCS; principal; 2020-04-30)
PROC: 0WQF0ZZ Repair Abdominal Wall, Open Approach (ICD-10-PCS; 2020-04-30)
PROC: 0DBV0ZZ Excision of Mesentery, Open Approach (ICD-10-PCS; 2020-04-30)
PROC: 0D1B0ZB Bypass Ileum to Ileum, Open Approach (ICD-10-PCS; 2020-04-30)
PROC: 06H033Z Insertion of Infusion Device into Inferior Vena Cava, Percutaneous Approach (ICD-10-PCS; 2020-05-01)
PROC: B549ZZA Ultrasonography of Inferior Vena Cava, Guidance (ICD-10-PCS; 2020-05-01)
PROC: 30233N1 Transfusion of Nonautologous Red Blood Cells into Peripheral Vein, Percutaneous Approach (ICD-10-PCS; 2020-05-02)
PROC: 5A12012 Performance of Cardiac Output, Single, Manual (ICD-10-PCS; 2020-05-03)
PROC: 0BH18EZ Insertion of Endotracheal Airway into Trachea, Via Natural or Artificial Opening Endoscopic (ICD-10-PCS; 2020-05-03)
PROC: 5A1945Z Respiratory Ventilation, 24-96 Consecutive Hours (ICD-10-PCS; 2020-05-03)
DX: A41.9 Sepsis, unspecified organism (principal); K63.1 Perforation of intestine (nontraumatic); N17.0 Acute kidney failure with tubular necrosis; K65.9 Peritonitis, unspecified; E43 Unspecified severe protein-calorie malnutrition; J96.01 Acute respiratory failure with hypoxia; D62 Acute posthemorrhagic anemia; K43.6 Other and unspecified ventral hernia with obstruction, without gangrene; E87.2 Acidosis; R18.8 Other ascites; D47.3 Essential (hemorrhagic) thrombocythemia; N40.0 Benign prostatic hyperplasia without lower urinary tract symptoms; F32.9 Major depressive disorder, single episode, unspecified; K40.20 Bilateral inguinal hernia, without obstruction or gangrene, not specified as recurrent; I70.0 Atherosclerosis of aorta; R57.1 Hypovolemic shock; E88.09 Other disorders of plasma-protein metabolism, not elsewhere classified; Z68.21 Body mass index [BMI] 21.0-21.9, adult; E86.0 Dehydration; I25.10 Atherosclerotic heart disease of native coronary artery without angina pectoris; K52.9 Noninfective gastroenteritis and colitis, unspecified; D63.8 Anemia in other chronic diseases classified elsewhere; I10 Essential (primary) hypertension; K43.9 Ventral hernia without obstruction or gangrene; K66.0 Peritoneal adhesions (postprocedural) (postinfection); E87.5 Hyperkalemia; E86.1 Hypovolemia
CPT/HCPCS: 36415; 36569; 36600; 70030-TC; 71045; 83605; 83735; 84100; 84478; 85018; 85025; 85610; 85730; 86850; 86900; 86901; 86920; 87040; 87070; 87075; 87077; 93005; 94002; 94003; A4217; A4649; A4663; C9113; G0378; J0171; J0330; J0461; J0696; J1100; J1170; J1265; J1885; J2250; J2270; J2370; J2405; J2543; J3010; J3475; J3490; J7030; J7040; J7042; J7050; J7060; J7120; P9016-BL; P9021; P9045; P9047